=== PATIENT | female | born 1950 | race Caucasian/White ===

== ENCOUNTER → 2019-01-04 | Outpatient (CLI) | payer OTHER ==
[~2019-01-04] MED LIST: IOPAMIDOL (ISOVUE 370) 100 ML BTL IV ONE
== END ==
LOC: FIMAGING 12:26
PROVIDERS: ATTEND Internal Medicine Geriatric Medicine
DX: I67.1 Cerebral aneurysm, nonruptured (principal)
CPT/HCPCS: Q9967

== ENCOUNTER 2019-01-31 11:37 | Day surgery (SDC) | payer OTHER ==
[2019-01-31] MEDS ORDERED: LR 1,000 ML IV ONE (11:50)
--- NOTE | 2019-01-31 13:17 | PDGENHP ---
History & Physical Chief Complaint: iron def anemia History of Present Illness: 68 year old female presents for evaluation of iron def anemia/hemoccult positive stools Pertinent Past, Social, Family History: PMHx: copd, cva, dm, obestiy. PSurghx: gastroplasty Relevant Physical Exam: HEENT: anicterc. CV: RRR+s1s2. Lungs: CTAB No w/r/r. Abd: soft, nt, + bs Cardiorespiratory Assessment: ASA 3
[2019-01-31] MEDS ORDERED: NS 500 ML IV SCH (13:30)
--- NOTE | 2019-01-31 13:31 | PDANEPAE ---
ANE History of Present Illness 68 year for EGD and Colonoscopy ANE Past Medical History - Cardiovascular History Hx Hypertension: Yes Hx Arrhythmias: Yes Hx Chest Pain: No Hx Coronary Artery / Peripheral Vascular Disease: No Hx CHF / Valvular Disease: No Hx Palpitations: No Cardiovascular History Comment: afib - Pulmonary History Hx COPD: Yes Hx Asthma/Reactive Airway Disease: No Hx Recent Upper Respiratory Infection: Yes Hx Oxygen in Use at Home: Yes O2 in Use at Home (L/minute): NOC O2 W/3 L Hx Sleep Apnea: No Sleep Apnea Screening Result - Last Documented: Positive Pulmonary History Comment: chest cold a couple of weeks ago. 3liters hs, sometimes during the day - Neurologic History Hx Cerebrovascular Accident: Yes Hx Seizures: No Hx Dementia: No Neurologic History Comment: stroke 2012,. epilepsy late (petit mal) - Endocrine History Hx Diabetes: Yes Endocrine History Comment: Type 2 no insulin - Renal History Hx Renal Disorders: No - Liver History Hx Hepatic Disorders: No - Neurological & Psychiatric Hx Hx Neurological and Psychiatric Disorders: Yes Neurological / Psychiatric History Comment: bipolar depression, chronic acute anxiety, PTSD - Cancer History Hx Cancer: No - Congenital Disorder History Hx Congenital Disorders: No - GI History Hx Gastrointestinal Disorders: Yes Gastrointestinal History Comment: gastroplasty, - Other Health History Other Health History: urinary incont - Chronic Pain History Chronic Pain: Yes (neck and shoulders) - Surgical History Prior Surgeries: gastroplasty, [place], appy, T & A ANE Review of Systems Review of systems is: negative Review of Systems: - Exercise capacity METS (RN): 3 METS ANE Patient History - Allergies Allergies/Adverse Reactions: carbamazepine [From Tegretol] Allergy (Verified 10/01/18 12:09) Rash Penicillins Allergy (Verified 10/01/18 12:09) Hives - Home Medications Home medications: home medication list seen and reviewed Home Medications: Aspirin 81 mg PO DAILY 10/01/18 [Last Taken 01/30/19] Digoxin 0.125 mg PO DAILY 10/01/18 [Last Taken 01/30/19] Diltiazem 360 mg PO DAILY 10/01/18 [Last Taken 01/30/19] Duloxetine HCl 60 mg PO DAILY 10/01/18 [Last Taken 01/30/19] Levothyroxine Sodium 112 mcg PO DAILY 10/01/18 [Last Taken 01/30/19] Lisinopril 20 mg PO DAILY 10/01/18 [Last Taken 01/30/19] Pradaxa 150 mg PO BID 10/01/18 [Last Taken 01/27/19] Pravastatin Sodium 80 mg PO DAILY 10/01/18 [Last Taken 01/29/19] Docusate Calcium 100 mg PO DAILY 10/04/18 [Last Taken 01/30/19] Fe C Tablet 1 tab-cap PO DAILY 10/04/18 [Last Taken 01/27/19] Metformin HCl 500 mg PO DAILY 10/04/18 [Last Taken 01/29/19] Tylenol 500 tab PO PRN PRN 10/04/18 [Last Taken 01/27/19] Albuterol [Ventolin Hfa Inhaler] 01/31/19 [Last Taken 01/26/19] - NPO status NPO Status: no food or drink >8 hours NPO Since - Liquids (Date): 01/30/19 NPO Since - Solids (Date): 01/30/19 NPO Since - Solids (Time): 09:00 - Anes Hx Anes Hx: no prior problems - Smoking Hx Smoking Status: Heavy smoker - Alcohol Use Alcohol Use: None - Family Anes Hx Family Hx Anesthesia Complications: no ANE Labs/Vital Signs - Vital Signs Blood Pressure: 130/95 Heart Rate: 116 Respiratory Rate: 14 O2 Sat (%): 92 Height: 170.18 cm Weight: 107.501 kg ANE Physical Exam - Airway Neck exam: FROM Mallampati Score: Class 2 Mouth exam: dentures - Pulmonary Pulmonary: no respiratory distress, clear to auscultation - ASA Status ASA Status: III
[2019-01-31] MEDS ORDERED: fentaNYL 100 MCG/2 ML INJ ONE (13:32)
[2019-01-31] MEDS ORDERED: PROPOFOL 200 MG/20 ML VIAL ONE ×2 (13:32→14:06)
--- NOTE | 2019-01-31 13:49 | GIREPORT ---
[facility] Surgical Services - Endoscopy Department Patient Name: Queenie Rasheed Procedure Date: 01/31/2019 1:21 PM Patient Type: Outpatient Attending MD/ ER Physician: Inder Pride MD Procedure: Upper GI endoscopy Indications: Iron deficiency anemia Patient Profile: 68 year old female with a history of a gastroplasty presents for evalua tion of iron deficiency anemia. Providers: Inder Pride MD Medicines: Monitored Anesthesia Care Complications: No immediate complications. Estimated blood loss: Minimal. Description of Procedure: After obtaining informed consent, the endoscope was passed under direct vision. Throughout the procedure, the patient's blood pressure, pulse, and oxygen saturations were monitored continuously. The Endoscope was intro duced through the mouth, and advanced to the second part of duodenum. The [facility] er GI endoscopy was accomplished without difficulty. The patient tolerated th e procedure well. Findings: The Z-line was irregular. Biopsies were taken with a cold forceps for histology. Patchy mildly erythematous mucosa was found in the gastric body and in the gastric antrum. Biopsies were taken with a cold forceps for histology. Evidence of a gastroplasty was seen. Normal pouch. The examined duodenum was normal. Biopsies for histology were taken wit h a cold forceps for evaluation of celiac disease. Estimated Blood Loss: Estimated blood loss was minimal. Post Op Diagnosis: - Z-line irregular. Biopsied. - Erythematous mucosa in the gastric body and antrum. Biopsied. - Normal examined duodenum. Biopsied. - Etiology? No obvious cause of anemia seen. Await biopsy results. Recommendation: - Perform a colonoscopy today. - Await pathology results. - Thank you for allowing me to participate in the care of your patient. Attending Participation: I personally performed the entire procedure. Inder Pride MD Inder Pride MD 01/31/2019 1:48:53 PM This report has been signed electronicallyInder Pride MD Number of Addenda: 0 Note Initiated On: 01/31/2019 1:21 PM [email or web address]
[2019-01-31] MEDS ORDERED: PROMETHAZINE HCL 25 MG/ML INJ IVP PRN (14:43)
[2019-01-31] MEDS ORDERED: ONDANSETRON 4 MG/2 ML VIAL IVP PRN (14:43)
--- NOTE | 2019-01-31 14:44 | POSTANESTH ---
Post Anesthetic Evaluation Cardiovascular Status: Normal, Stable Respiratory Status: Normal, Stable Level of Consciousness/Mental Status: Can Participate in Eval Pain Control: Adequate, Prn Tx Ordered Nausea/Vomiting Control: Adequate, Prn Tx Ordered Complications Possibly Related to Anesthesia: None Noted
--- NOTE | 2019-01-31 15:05 | GIREPORT ---
[facility] Surgical Services - Endoscopy Department Patient Name: Queenie Rasheed Procedure Date: 01/31/2019 1:22 PM Patient Type: Outpatient Attending MD/ ER Physician: Inder Pride MD Procedure: Colonoscopy Indications: Heme positive stool, Iron deficiency anemia Patient Profile: 68 year old female presents for evaluation of heme positive stools/iron deficiency anemia. Providers: Inder Pride MD Medicines: Monitored Anesthesia Care Complications: No immediate complications. Estimated blood loss: Minimal. Description of Procedure: After obtaining informed consent, the scope was passed under direct vis ion. Throughout the procedure, the patient's blood pressure, pulse, and oxyg en saturations were monitored continuously. The Colonoscope with irrigatio n channel was introduced through the anus and advanced to the cecum, identified by appendiceal orifice and ileocecal valve. The colonoscopy was performed without difficulty. The patient tolerated the procedure well. The quality of the bowel preparation was fair. Thick liquid stool with claude ks was seen throughout the colon. The ileocecal valve, appendiceal orifice , and rectum were photographed. Findings: The perianal and digital rectal examinations were normal. Pertinent negatives include no palpable rectal lesions. Three sessile polyps were found in the transverse colon. The polyps wer e 4 to 6 mm in size. These polyps were removed with a cold snare. Resection and retrieval were complete. A 5 mm polyp was found in the descending colon. The polyp was sessile. The polyp was removed with a cold snare. Resection and retrieval were compl ete. A 20 mm polyp was found in the sigmoid colon. The polyp was sessile. Th e polyp was removed with a piecemeal technique using a hot snare. Resecti on and retrieval were complete. A 8 mm polyp was found in the sigmoid colon. The polyp was sessile. The polyp was removed with a hot snare. Resection and retrieval were comple te. Many diverticula were found in the sigmoid colon and descending colon. Estimated Blood Loss: Estimated blood loss was minimal. Post Op Diagnosis: - Three 4 to 6 mm polyps in the transverse colon, removed with a cold s nare. Resected and retrieved. - One 5 mm polyp in the descending colon, removed with a cold snare. Resected and retrieved. - One 20 mm polyp in the sigmoid colon, removed piecemeal using a hot s nare. Resected and retrieved. - One 8 mm polyp in the sigmoid colon, removed with a hot snare. Resect ed and retrieved. - Diverticulosis in the sigmoid colon and in the descending colon. Recommendation: - Discharge patient to home (with escort). - The signs and symptoms of potential delayed complications were discus sed with the patient. - Patient has a contact number available for emergencies. - Return to normal activities tomorrow. - Resume previous diet. - Continue present medications. - Await pathology results. - Repeat colonoscopy in 1 year for surveillance due to piecemeal resect ion. Needs extended prep. - To visualize the small bowel, perform video capsule endoscopy. - Thank you for allowing me to participate in the care of your patient. Attending Participation: I personally performed the entire procedure. Inder Pride MD Inder Pride MD 01/31/2019 3:04:54 PM This report has been signed electronicallyInder Pride MD Number of Addenda: 0 Note Initiated On: 01/31/2019 1:22 PM Total Procedure Duration Time 0 hours 37 minutes 49 seconds [email or web address]
[2019-01-31 15:37] VITALS: BP 104/66
== END 2019-01-31 15:55 | disposition home or self-care (01) ==
LOC: FSGY 11:37
PROVIDERS: ATTEND Internal Medicine Gastroenterology
DX: D50.9 Iron deficiency anemia, unspecified (principal); R19.5 Other fecal abnormalities; D12.3 Benign neoplasm of transverse colon; D12.4 Benign neoplasm of descending colon; D12.5 Benign neoplasm of sigmoid colon; K29.30 Chronic superficial gastritis without bleeding; K20.8 Other esophagitis; I10 Essential (primary) hypertension; I48.91 Unspecified atrial fibrillation; J44.9 Chronic obstructive pulmonary disease, unspecified; Z86.73 Personal history of transient ischemic attack (TIA), and cerebral infarction without residual deficits; E11.9 Type 2 diabetes mellitus without complications; F31.9 Bipolar disorder, unspecified; F41.9 Anxiety disorder, unspecified; F43.12 Post-traumatic stress disorder, chronic
CPT/HCPCS: J2704; J3010

== ENCOUNTER → 2019-02-22 | Outpatient (CLI) | payer OTHER | LOC: FIMAGING 12:10 | PROVIDERS: ATTEND Family Medicine | DX: Z12.31 Encounter for screening mammogram for malignant neoplasm of breast (principal); Z13.820 Encounter for screening for osteoporosis; M85.89 Other specified disorders of bone density and structure, multiple sites ==